=== PATIENT | male | born 1980 | race Caucasian/White ===

== ENCOUNTER 2023-05-04 19:38 | Emergency (ER) | payer OTHER ==
[~2023-05-04] VITALS: Ht 175.3 cm; Wt 86.2 kg
[2023-05-04 20:15] VITALS: BP 117/85
--- NOTE | 2023-05-04 20:22 | NUR ---
TO LOBBY FOLLOWING TRIAGE
--- NOTE | 2023-05-04 21:36 | NUR ---
PT TO BED 12. DR. STATON AT BEDSIDE FOR PROCEDURE.
[2023-05-04] MEDS ORDERED: LIDOCAINE MPF 1% 5 ML ONE (21:37)
[2023-05-04] MEDS ORDERED: LIDOCAINE 1% 500 MG/ 50 ML VIAL INJ ONE (21:40)
[2023-05-04] MEDS ORDERED: CEPH-588 PO (21:57)
--- NOTE | 2023-05-04 22:15 | NUR ---
Patient discharged with v/s stable. Written and verbal after care instructions given and explained. New rx keflex. Patient verbalized understanding. Ambulatory with steady gait. All questions addressed prior to discharge. Advised to follow up with PMD.
[2023-05-04 22:16] VITALS: BP 117/85
== END 2023-05-04 22:15 | disposition home or self-care (01) ==
LOC: MED 19:38
DX: S61.211A Laceration without foreign body of left index finger without damage to nail, initial encounter (principal); Z79.899 Other long term (current) drug therapy; W18.30XA Fall on same level, unspecified, initial encounter; Y93.89 Activity, other specified; Y92.89 Other specified places as the place of occurrence of the external cause; Y99.8 Other external cause status
CPT/HCPCS: 12001; 73130; 90471; 90715; 99283; J2001